=== PATIENT | female | born 1990 | race Caucasian/White ===

== ENCOUNTER → 2017-10-03 09:51 | Outpatient (CLI) | payer BC, SELFPAY ==
--- NOTE | 2017-10-03 09:58 | US_ITS ---
US abdomen limited History:Right upper quadrant pain with nausea and vomiting Ordering Physician:Jennifer Ashraf Patient Age: 27 years Comparison:None Findings: Pancreas:Unremarkable. No obvious mass or abnormal fluid collection. No ductal dilatation Liver:No focal liver lesions demonstrated. Homogeneous echogenicity. No intrahepatic biliary ductal dilatation evident Right Kidney:Unremarkable. Normal size and echogenicity. No hydronephrosis Gallbladder:No gallstones, gallbladder wall thickening, pericholecystic fluid, or biliary dilatation. Impression:Negative gallbladder/right upper quadrant ultrasound
== END ==
PROVIDERS: Family Provider Family Medicine; PCP Nurse Practitioner; Visit Provider Nurse Practitioner
DX: R11.10 Vomiting, unspecified (principal)
CPT/HCPCS: 76705

== ENCOUNTER → 2021-02-09 16:14 | Outpatient (CLI) | payer BC, SELFPAY ==
--- NOTE | 2021-02-09 16:19 | CT_ITS ---
PROCEDURE INFORMATION: Exam: CT Abdomen And Pelvis With Contrast Exam date and time: 02/09/2021 4:19 PM Age: 30 years old Clinical indication: Vomiting; Prior surgery; Surgery type: Tubal ligation; Additional info: Vomiting, other elevated wbc TECHNIQUE: Imaging protocol: Computed tomography of the abdomen and pelvis with contrast. Radiation optimization: All CT scans at this facility use at least one of these dose optimization techniques: automated exposure control; mA and/or kV adjustment per patient size (includes targeted exams where dose is matched to clinical indication); or iterative reconstruction. Contrast material: ISOVUE; Contrast volume: 75 ml; Contrast route: IV; COMPARISON: [facility] US abdomen limited 10/03/2017 9:55 AM FINDINGS: Liver: Normal. No mass. Gallbladder and bile ducts: Normal. No calcified stones. No ductal dilation. Pancreas: Normal. No ductal dilation. Spleen: Normal. No splenomegaly. Adrenal glands: Normal. No mass. Kidneys and ureters: Normal. No hydronephrosis. Stomach and bowel: Unremarkable. No obstruction. No mucosal thickening. Appendix: No evidence of appendicitis. Intraperitoneal space: Unremarkable. No free air. No significant fluid collection. Vasculature: Unremarkable. No abdominal aortic aneurysm. Lymph nodes: Unremarkable. No enlarged lymph nodes. Urinary bladder: Unremarkable as visualized. Reproductive: Unremarkable as visualized. Bones/joints: Unremarkable. No acute fracture. Soft tissues: Unremarkable. IMPRESSION: No acute findings.
== END ==
PROVIDERS: PCP Family Medicine; Visit Provider Family Medicine
DX: R11.10 Vomiting, unspecified (principal); D72.828 Other elevated white blood cell count
CPT/HCPCS: 74177; Q9967

== ENCOUNTER 2021-08-20 17:54 | Emergency (ER) | payer BC, SELFPAY ==
[2021-08-20 18:05] VITALS: BP 133/90; PULSE 83; RESP 20; TEMP 36.8; O2SAT 99; BMI 32.1
--- NOTE | 2021-08-20 18:31 | HMH.EDUTC ---
[facility] – [place] Disposition Clinical Impression: Muscle spasm Disposition: Home, Self-Care Condition on Discharge: Good Instructions: Cyclobenzaprine, DI for Muscle Spasm Additional Instructions: *Etodolac desiree 8 hours with meal as needed for pain/inflammation *Remember you had a Toradol shot in the clinic today, which is similar to Motrin *Not additional anti-inflammatory like Ibuprofen motrin, aleve, advil with the above amount of Etodolac. You can still take Tylenol every 4 hours as needed if you need something else for pain *Ice 20 minutes every 2 hours for the first 48 hours after the initial injury followed by moist heat every 20 minutes 3-4 times a day to affected area *Muscle relaxer every 8 hours as needed for muscle spasms but remember, it WILL cause drowsiness You cannot take it and drive, operate machinery or care for small children. *Keep this area active, no movement leads to more stiffness, However take it easy and avoid heavy lifting pushing or pulling *Follow up with you family doctor if no improvement for further treatment Prescriptions: Etodolac 200 mg PO Q8HP PRN #15 cap PRN Reason: Moderate Pain Transmission Status: Received by [id number] Cyclobenzaprine HCl [Flexeril 10mg tablet] 10 mg PO Q8HP PRN #15 tab PRN Reason: Muscle Spasm Transmission Status: Received by [id number] Referrals: Leonides Bernard MD [Primary Care Provider] - As needed Time of Disposition: 18:56 Medical Decision Making - Bayron Inquiry Pt receiving controlled substance: No Bayron was queried for this patient: No Vital Signs: 08/20/21 18:05 08/20/21 18:49 Temperature 98.3 F 98.3 F Temperature Source Oral Pulse Rate 83 Pulse Rate [Right Brachial] 83 Respiratory Rate 20 20 Blood Pressure 133/90 Blood Pressure [Right Arm] 133/90 Blood Pressure Mean [Right Arm] 104 Blood Pressure Source [Right Arm] Automatic Cuff Blood Pressure Position [Right Arm] Sitting 02 Sat by Pulse Oximetry 99 Oxygen Delivery Method Room Air Orders (Tests/Meds): ED MEDICATIONS Discontinued Medications Generic Name Dose Route Start Last Admin Trade Name Freq PRN Reason Stop Dose Admin Ketorolac Tromethamine 60 mg 08/20/21 18:40 08/20/21 18:45 Ketorolac 60mg/2ml Vial IM 08/20/21 18:41 60 mg ONCE ONE Administration Methylprednisolone Sodium Succinate 125 mg 08/20/21 18:40 08/20/21 18:45 Methylprednisolone Sod Succ 125mg Vial IM 08/20/21 18:41 125 mg ONCE ONE Administration [facility] [place] HPI - General Stated complaint: right shoulder muscle spasms Time Seen by Provider: 08/20/21 18:31 Mode of Arrival: Ambulatory Source of Information: Patient Limitations: No Limitations Description of Symptoms (Recalled from Triage Doc. by RN): PATIENT C/O MUSCLE SPASM TO RIGHT SHOULDER WITH PAIN RADIATING DOWN RIGHT ARM SINCE LAST NIGHT HEENT Symptoms (Recalled from RN notes): No Resp Symptoms (Recalled from RN notes): No Skin Symptoms (Recalled from RN notes): No MS Symptoms (Recalled from RN notes): Yes Functional Status (Recalled from RN notes): WNL - History of Present Illness Provider Complaint: Patient states that earlier in the week she was lifting bird feed to put in the feeder and feels like she may have pulled something in her right shoulder States that now she is having muscle spasms and feels like her muscle is tight in her shoulder into her upper arm Denies known injury - Related Data Previous Rx's Medication Instructions Recorded Cyclobenzaprine HCl [Flexeril 10mg 10 mg PO Q8HP PRN #15 tab 08/20/21 tablet] Etodolac 200 mg PO Q8HP PRN #15 cap 08/20/21 Allergies Allergy/AdvReac Type Severity Reaction Status Date / Time No Known Allergies Allergy Verified 08/20/21 18:17 - Worker's Comp Is this a Worker's Comp case?: No [facility] History - Hepatitis A Screen Attestation statement:: This patient has been screened for Hepatitis A risk factors. I have reviewed the patient's
[2021-08-20 18:49] VITALS: BP 133/90; PULSE 83; RESP 20; TEMP 36.8; O2SAT 99
== END 2021-08-20 19:10 | disposition home or self-care (01) ==
PROVIDERS: Emergency Provider Nurse Practitioner; PCP Family Medicine
DX: M62.838 Other muscle spasm (principal)
CPT/HCPCS: 96372; 99213; G0463

== ENCOUNTER → 2023-03-05 10:13 | Outpatient (CLI) | payer BC, SELFPAY | PROVIDERS: PCP Student in an Organized Health Care Education/Training Program; Visit Provider Student in an Organized Health Care Education/Training Program | DX: J02.9 Acute pharyngitis, unspecified (principal) | CPT/HCPCS: 87070 ==

== ENCOUNTER 2023-10-03 10:45 | Outpatient (CLI) | payer BC, SELFPAY ==
[2023-10-03 18:56] LABS: Adenovirus,PCR Not Detected (NotDetected); Bordetella Pertussis Not Detected (NotDetected); Chlamydophila Pneumoniae, PCR Not Detected (NotDetected); Coronavirus 19, PCR Not Detected (NotDetected); Coronavirus 229E Not Detected (NotDetected); Coronavirus NL63 Not Detected (NotDetected); Coronavirus OC43 Not Detected (NotDetected); Coronovirus HKU1,PCR Not Detected (NotDetected); Human Metapneumovirus Not Detected (NotDetected); Influenza A, PCR Not Detected (NotDetected); Influenza AH1, 2009 Not Detected (NotDetected); Influenza AH1, PCR Not Detected (NotDetected); Influenza AH3,PCR Not Detected (NotDetected); Influenza B, PCR Not Detected (NotDetected); Mycoplasma Pneumoniae, PCR Not Detected (NotDetected); Parainfluenza 1, PCR Not Detected (NotDetected); Parainfluenza 2, PCR Not Detected (NotDetected); Parainfluenza 3, PCR Not Detected (NotDetected); Parainfluenza 4, PCR Not Detected (NotDetected); Respiratory Syncytial Virus Not Detected (NotDetected); Rhinovirus/Enterovirus Not Detected (NotDetected)
== END 2023-10-03 23:59 | disposition home or self-care (01) ==
LOC: LAB.DROPOF 10-04 10:45
PROVIDERS: PCP Nurse Practitioner Family; Visit Provider Nurse Practitioner Family
DX: R05.9 Cough, unspecified (principal); R50.9 Fever, unspecified; R09.81 Nasal congestion; R07.0 Pain in throat; J98.8 Other specified respiratory disorders
CPT/HCPCS: 87581; 87632; 87635; 87798

== ENCOUNTER 2023-10-15 03:58 | Emergency (ER) | payer BC, SELFPAY ==
[2023-10-15 04:00] VITALS: BP 139/96; PULSE 76; RESP 16; TEMP 36.4; O2SAT 96; BMI 32.5
--- NOTE | 2023-10-15 04:09 | XR_ITS ---
PROCEDURE INFORMATION: Exam: XR Chest Exam date and time: 10/15/2023 4:53 AM Age: 33 years old Clinical indication: Cough; Additional info: Cough, rll abnormal breath sounds TECHNIQUE: Imaging protocol: Radiologic exam of the chest. Views: 1 view. COMPARISON: CT ABDOMEN PELVIS W CON 02/09/2021 4:44 PM FINDINGS: Lungs: Unremarkable. No consolidation. Pleural spaces: Unremarkable. No pleural effusion. No pneumothorax. Heart/Mediastinum: Unremarkable. No cardiomegaly. Bones/joints: Unremarkable. IMPRESSION: No acute findings.
--- NOTE | 2023-10-15 04:12 | ED_ITS ---
Discharge Plan Disposition Patient Disposition: Home, Self-Care Prescriptions Prescriptions: New ondansetron HCl 4 mg tablet 4 mg PO Q8H PRN (Reason: nausea and vomiting) 5 Days Qty: 30 0RF promethazine 25 mg tablet 25 mg PO Q6H PRN (Reason: nausea and vomiting) Qty: 20 0RF No Action Wegovy 0.25 mg/0.5 mL pen injector SQ Patient Comments: INJECT 1 AUTO-INJECTOR UNDER THE SKIN INTO THE APPROPRIATE AREA DIRECTED ONCE WEEKLY [id number]-[id number]-CZ [Bromfed DM] 2-30-10 mg/5 mL syrup 5 ml PO Q4-6H PRN (Reason: cough) Qty: 200 0RF lisinopril 10 mg tablet 10 mg PO DAILY Referrals Follow up/Referrals: Lamonte Couch [Primary Care Provider] - See instructions Activity Restrictions/Add. Instructions Additional Instructions/Restrictions: Please follow-up with your primary care provider. Please return to the emergency department if you develop any new or worsening symptoms or become concerned for your health. Please take Zofran and promethazine as needed for nausea and vomiting. Please try to stay hydrated. Clinical Impressions Clinical Impression: Nausea & vomiting Qualifiers: Vomiting type: unspecified Qualified Code(s): R11.2 - Nausea with vomiting, unspecified Instructions Patient Instructions: DI for Diarrhea and Traveler's Diarrhea -- Adult, DI for Diarrhea and Traveler's Diarrhea -- Child, DI for Nausea -- Adult, DI for Nausea -- Child Discharge ED Provider: Azar Nation General Adult HPI General Chief complaint: Nausea/Vomiting/Diarrhea Stated complaint: vomitting, has walking pneumonia, chills Time Seen by Provider: 10/15/23 04:00 History of Present Illness HPI narrative: 33-year-old female presents with multiple complaints. She reports that she was diagnosed with walking pneumonia about 5 or 6 days ago and recently completed a course of azithromycin. Yesterday and today she has had some nausea and vomiting, vomiting has been getting worse. She denies any diarrhea. She reports she has not had a fever for at least for 5 days. She is on Wegovy, has not had any recent increases in dose. Related Data Home Medications Medication Instructions Recorded Confirmed lisinopril 10 mg tablet 10 mg PO DAILY 03/05/23 10/03/23 semaglutide (weight loss) 0.25 mg SQ 10/03/23 10/03/23 mg/0.5 mL subcutaneous pen injector (Alberto) Previous Rx's Medication Instructions Recorded qwpmtrppoplomyo-wgmituklortumzd-FJ 5 ml PO Q4-6H PRN cough #200 mL 10/03/23 2 mg-30 mg-10 mg/5 mL oral syrup (Bromfed DM) ondansetron HCl 4 mg tablet 4 mg PO Q8H PRN nausea and 10/15/23 vomiting 5 days #30 tabs promethazine 25 mg tablet 25 mg PO Q6H PRN nausea and 10/15/23 vomiting #20 tabs Allergies Allergy/AdvReac Type Severity Reaction Status Date / Time No Known Allergies Allergy Verified 10/03/23 11:44 [facility] Disclaimer: The information contained in this section may have been updated after the patient was seen, as this information can be updated by other users. Medical History (Updated 10/15/23 @ 05:18 by Azar Nation MD) Muscle spasm Pharyngitis Hypertension Depression Surgical History History of delivery History of cholecystectomy History of tonsillectomy Family History Family/Other No significant family history Social History Smoking Status: Unknown if ever smoked alcohol intake: never substance use type: denies use current occupational status: employed Travel in the last 8 weeks: None adopted: No caregiver/support person: No household members: family lives independently: Yes marital status: Hx Recent Travel: No ROS Obtained: Yes All systems reviewed & no additional complaints except as documented Physical Exam General General appearance: alert and in no apparent distress Head Head exam: atraumatic and normocephalic Eye Eye exam: Present normal appearance, PERRL and EOMI ENT ENT exam: Present normal oropharynx and normal external ear exam Neck Neck exam: Present normal inspection and full ROM Chest Chest inspection: Present normal inspection and symmetric chest wall rise; Absent tenderness Respiratory Respiratory exam: Present normal lung sounds bilaterally; Absent respiratory distress Cardiovascular Cardiovascular exam: Present regular rate and normal rhythm Abdominal Exam Abdominal exam: Present soft; Absent distention, tenderness or guarding Extremities Exam Extremities exam: Present normal inspection; Absent edema or joint swelling Back Exam Back exam: Present normal inspection; Absent tenderness Neurological Exam Neurological exam: Present alert and oriented X3; Absent motor sensory deficit Psychiatric Psychiatric exam: Present normal affect and normal mood Skin Skin exam: Present warm, dry and normal color Lymphatic Lymphatic Findings: no adenopathy Medical Decision Making Medical Records Medical records reviewed: Yes I reviewed the patient's medical records. Bayron Inquiry Pt receiving controlled substance: No Bayron was queried for this patient: No Vital Signs: 10/15/23 04:00 Temperature 97.5 F L Temperature Source Oral Pulse Rate [Left] 76 Respiratory Rate 16 Blood Pressure [Right Arm] 139/96 H Blood Pressure Mean [Right Arm] 110 02 Sat by Pulse Oximetry 96 Oxygen Delivery Method Room Air Lab Data Lab results reviewed: Yes I reviewed the patient's lab results. Lab Results 10/15/23 04:20: WBC 13.0 H, RBC 4.22, Hgb 13.4, Hct 39.5, MCV 93.8, MCH 31.8 H, MCHC 33.9, RDW 13.7, Plt Count 394, MPV 8.2, Neut % (Auto) 81.9 H, Lymph % (Auto) 13.5, [place] % (Auto) 2.7, Eos % (Auto) 1.4, Baso % (Auto) 0.5, Neut # (Auto) 10.7 H, Lymph # (Auto) 1.8, [place] # (Auto) 0.4, Eos # (Auto) 0.2, Baso # (Auto) 0.1, Sodium 141, Potassium 3.8, Chloride 103, Carbon Dioxide 27, Anion Gap 14.8, BUN 11, Creatinine 0.70, Estimated Creat Clear 148, Estimated GFR 98, Est GFR ( Amer) 118, Glucose 118 H, Calcium 10.2, Magnesium 1.7, Total Bilirubin 1.1, AST 56 H, ALT 52, Alkaline Phosphatase 86, Total Protein 8.3 H, Albumin 4.6, Globulin 3.7 H, Albumin/Globulin Ratio 1.2, Lipase 79, Serum HCG, Qual Negative 10/15/23 04:20 10/15/23 04:20 Orders (Tests/Meds): ED MEDICATIONS Generic Name Dose Route Start Last Admin Trade Name Freq PRN Reason Stop Dose Admin Promethazine HCl 25 mg 10/15/23 05:17 Promethazine Hcl 25mg/Ml 1ml Vial IV 10/15/23 05:18 ONCE ONE Sodium Chloride 10 ml 10/15/23 04:26 Sodium Chloride 0.9% 10ml Flush Syringe IV 11/14/23 04:25 NEEDED PRN Maintain IV Site Sodium Chloride 25 ml 10/15/23 05:17 Sodium Chloride 0.9% 25ml Bag IV 10/15/23 05:18 ONCE ONE Discontinued Medications Generic Name Dose Route Start Last Admin Trade Name Freq PRN Reason Stop Dose Admin Lactated Ringer's 1,000 mls @ 999 mls/hr 10/15/23 04:15 10/15/23 04:22 Lactated Ringer's 1000 Ml Bag IV 10/15/23 05:15 999 mls/hr .Q1H1M CEZAR Administration Ondansetron HCl 4 mg 10/15/23 04:09 10/15/23 04:22 Ondansetron 4mg/2ml Vial IV 10/15/23 04:10 4 mg ONCE ONE Administration ORDERS Category Date Time Status CXR --portable [XR chest portable] Stat Exams 10/15/23 04:09 Taken CBC w/Auto Diff [Complete Blood Count Auto Diff] Stat Lab 10/15/23 04:20 Completed CMP [Comprehensive Metabolic Panel] Stat Lab 10/15/23 04:20 Completed HCG Qualitative, Serum Stat Lab 10/15/23 04:20 Completed Lipase Stat Lab 10/15/23 04:20 Completed Magnesium Stat Lab 10/15/23 04:20 Completed Medical Decision Narrative: 33-year-old female without significant past medical history presents with nausea and vomiting. History was obtained interactive discussion with patient. On arrival, patient is [afebrile, hemodynamically stable, satting appropriately, alert, oriented x4, GCS 15], moving all extremities spontaneously. Full physical exam performed and significant for benign abdominal exam. Differential includes but is not limited to gastroenteritis, pancreatitis, dehydration, electrolyte derangement. Patient was given 1 L IV fluid bolus, Zofran, Phenergan for symptomatic management and correction of underlying abnormalities. Workup initiated including CBC CMP lipase mag test. On re-evaluation, patient [remains afebrile, HD stable.] Reports significant symptomatic improvement. Laboratory workup independently interpreted by me and significant for minimal leukocytosis, normal creatinine, negative lipase, negative test. Imaging independently interpreted by me and significant for no focal opacity concerning for ongoing pneumonia.. See radiology read for full review of final results. Given patient history, exam and workup, patient's presentation most likely represents developing gastroenteritis. No evidence of emergent pathology at this time. Patient discharged in stable condition with prescription for Zofran and Phenergan. Return precautions given.. Procedures Risk/Benefits of Procedure(s) Were Explained: Yes Critical Care Critical Care Time Critical Care Time: No
[2023-10-15] MEDS: ONDANSETRON 4MG/2ML VIAL 4 MG IV (04:22)
[2023-10-15] MEDS: LACTATED RINGERS 1000ML 1,000 ML 999 ML IV (04:22)
[2023-10-15 04:41] LABS: Basophils # 0.1 K/mm3 (0-0.2); Basophils % 0.5 % (0.1-2.0); Eosinophils # 0.2 K/mm3 (0.0-0.4); Eosinophils % 1.4 % (0.1-12.0); Hematocrit 39.5 % (37.0-47.0); Hemoglobin 13.4 g/dL (12.2-16.2); Lymphocytes # 1.8 K/mm3 (0.7-4.5); Lymphocytes % 13.5 % (10-50); Mean Corpuscular HGB Conc 33.9 g/dL (31.8-35.4); Mean Corpuscular Hemoglobin 31.8 pg (27.0-31.2); Mean Corpuscular Volume 93.8 fl (81-99); Mean Platelet Volume 8.2 fl (7.4-10.4); Monocytes # 0.4 K/mm3 (0.1-1.0); Monocytes % 2.7 % (1.7-9.3); Neutrophils # 10.7 K/mm3 (1.8-7.8); Neutrophils % 81.9 % (37.0-80.0); Platelet Count 394 K/mm3 (142-424); Red Blood Count 4.22 M/mm3 (4.20-5.40); Red Cell Distribution Width 13.7 % (11.5-17.5)
[2023-10-15 04:44] LABS: Chloride 103 mmol/L (98-107); Potassium 3.8 mmoL/L (3.5-5.1); Sodium 141 mmol/L (136-145)
[2023-10-15 04:46] LABS: HCG Qualitative, Serum Negative (Negative)
[2023-10-15 04:47] LABS: Alanine Aminotransferase 52 U/L (12-78); Albumin Level 4.6 g/dl (3.5-5.0); Albumin/Globulin Ratio 1.2 (1.1-1.8); Alkaline Phosphatase 86 U/L (38-126); Anion Gap 14.8 mEq/L (5-15); Aspartate Amino Transferase 56 U/L (14-36); Bilirubin,Total 1.1 mg/dl (0.2-1.3); Blood Urea Nitrogen 11 mg/dl (7-17); Carbon Dioxide 27 mmol/L (22.0-30.0); Creatinine Clearance Estimated 148 mL/min (50-200); Estimated Glomerular Filt Rate 98 ml/min (>60); GFR (African American) 118 ML/MIN (>60); Globulin 3.7 g/dL (1.3-3.2); Lipase 79 U/L (23-300); Total Protein,Serum 8.3 g/dl (6.3-8.2)
[2023-10-15 04:48] LABS: Calcium 10.2 mg/dl (8.4-10.2); Glucose 118 mg/dl (74-100); Magnesium 1.7 mg/dl (1.6-2.3)
[2023-10-15] MEDS: PROMETHAZINE HCL 25MG/ML 1ML VIAL 25 MG IV (05:24)
[2023-10-15] MEDS: SODIUM CHLORIDE 0.9% 25ML BAG 25 ML IV (05:25)
[2023-10-15 05:41] VITALS: BP 127/1; PULSE 71; RESP 16; TEMP 36.4; O2SAT 98
== END 2023-10-15 05:42 | disposition home or self-care (01) ==
PROVIDERS: Emergency Provider Emergency Medicine; PCP Family Medicine
DX: R11.2 Nausea with vomiting, unspecified (principal)
CPT/HCPCS: 71045; 80053; 83690; 83735; 84703; 85025; 96361; 96374; 96375; 99284; J2405; J2550; J7120

== ENCOUNTER 2024-01-21 20:21 | Emergency (ER) | payer BC, SELFPAY ==
[2024-01-21 20:21] VITALS: BP 140/96; PULSE 68; RESP 16; TEMP 37.2; O2SAT 97; BMI 30.5
--- NOTE | 2024-01-21 20:24 | ECG_ITS ---
APPROVED REPORT Exam: Resting ECG HR:93 bpm ECG Measurements Heart Rate 93 AXES WY 171 P 58 QRSd 93 QRS 4 QT 343 T 30 QTc 394 Conclusion SINUS RHYTHM NORMAL ECG INTERPRETATION BASED ON A DEFAULT AGE OF 40 YEARS Electronically signed by : GERA GEE, 01/22/2024 07:28:25
[2024-01-21 20:34] VITALS: PULSE 68
--- NOTE | 2024-01-21 20:34 | XR_ITS ---
PROCEDURE INFORMATION: Exam: XR Chest Exam date and time: 01/21/2024 8:57 PM Age: 33 years old Clinical indication: Pain; Chest pressure; Additional info: Cp, TECHNIQUE: Imaging protocol: Radiologic exam of the chest. Views: 1 view. COMPARISON: CR XR CHEST PORTABLE 10/15/2023 4:53 AM FINDINGS: Lungs: Unremarkable. No consolidation. Pleural spaces: Unremarkable. No pleural effusion. No pneumothorax. Heart/Mediastinum: Unremarkable. No cardiomegaly. Bones/joints: Unremarkable. IMPRESSION: No acute findings.
[2024-01-21 20:40] LABS: Basophils # 0.1 K/mm3 (0-0.2); Basophils % 0.7 % (0.1-2.0); Eosinophils # 0.2 K/mm3 (0.0-0.4); Eosinophils % 1.8 % (0.1-12.0); Hemoglobin 14.7 g/dL (12.2-16.2); Mean Corpuscular HGB Conc 33.4 g/dL (31.8-35.4); Mean Platelet Volume 8.7 fl (7.4-10.4); Monocytes # 0.3 K/mm3 (0.1-1.0); Monocytes % 2.8 % (1.7-9.3); Neutrophils # 7.6 K/mm3 (1.8-7.8); Neutrophils % 74.7 % (37.0-80.0); Platelet Count 313 K/mm3 (142-424); Red Blood Count 4.58 M/mm3 (4.20-5.40); Red Cell Distribution Width 13.5 % (11.5-17.5); White Blood Count 10.1 K/mm3 (4.8-10.8)
[2024-01-21 20:50] LABS: Albumin Level 4.9 g/dl (3.5-5.0); Chloride 100 mmol/L (98-107)
[2024-01-21 20:51] LABS: Potassium 3.7 mmoL/L (3.5-5.1); Sodium 138 mmol/L (136-145)
[2024-01-21 20:53] LABS: Alanine Aminotransferase 30 U/L (12-78); Albumin/Globulin Ratio 1.5 (1.1-1.8); Alkaline Phosphatase 88 U/L (38-126); Anion Gap 14.7 mEq/L (5-15); Aspartate Amino Transferase 50 U/L (14-36); Bilirubin,Total 1.3 mg/dl (0.2-1.3); Blood Urea Nitrogen 11 mg/dl (7-17); Carbon Dioxide 27 mmol/L (22.0-30.0); Creatinine Clearance Estimated 139 mL/min (50-200); Estimated Glomerular Filt Rate 98 ml/min (>60); GFR (African American) 118 ML/MIN (>60); Globulin 3.2 g/dL (1.3-3.2); Total Protein,Serum 8.1 g/dl (6.3-8.2)
[2024-01-21 20:54] LABS: Calcium 9.9 mg/dl (8.4-10.2); Glucose 105 mg/dl (74-100); Lipase 71 U/L (23-300)
[2024-01-21] MEDS: METOCLOPRAMIDE HCL 10MG/2ML VIAL 10 MG IVP (21:10)
[2024-01-21] MEDS: LACTATED RINGERS 1000ML 1,000 ML 999 ML IV (21:10)
[2024-01-21 21:27] LABS: HCG,Quantitative < 2 mIU/ml (0-5.42); Troponin I < 0.01 ng/ml (0.00-0.034)
[2024-01-21 21:33] VITALS: BP 126/93; PULSE 93; RESP 16; TEMP 36.7; O2SAT 97
[2024-01-21 21:42] LABS: HIV (1&2) Antibody Rapid NONREACTIVE (NONREACTIVE)
--- NOTE | 2024-01-21 23:21 | HMH.EDGENADL ---
Discharge Plan Disposition Patient Disposition: Left Against Medical Advice Condition: Good Prescriptions Prescriptions: No Action Wegovy 0.25 mg/0.5 mL pen injector SQ Patient Comments: INJECT 1 AUTO-INJECTOR UNDER THE SKIN INTO THE APPROPRIATE AREA DIRECTED ONCE WEEKLY zbhvfebqhkwolvo-yfbmwzgob-MW [Bromfed DM] 2-30-10 mg/5 mL syrup 5 ml PO Q4-6H PRN (Reason: cough) Qty: 200 0RF lisinopril 10 mg tablet 10 mg PO DAILY ondansetron HCl 4 mg tablet 4 mg PO Q8H PRN (Reason: nausea and vomiting) 5 Days Qty: 30 0RF promethazine 25 mg tablet 25 mg PO Q6H PRN (Reason: nausea and vomiting) Qty: 20 0RF Clinical Impressions Clinical Impression: Abdominal pain Print Language Print Language: Iranian Discharge ED Provider: Ranjeet Raymond General Adult HPI General Chief complaint: Chest Pain Stated complaint: chest pain Time Seen by Provider: 01/21/24 20:34 Mode of Arrival: Ambulatory Source of Information: Patient Limitations: No Limitations Description of Symptoms (Recalled from ER Triage Doc. by RN): Pt presents to ED for chesp pressure, N/V, and anxiety. Pt states she doesn't have pain,it just feels weird and she thinks it may be anxiety. Pt took Xantac at home and it didn't help. History of Present Illness HPI narrative: Please note that above description of symptoms, in this electronic medical record under categorization of recalled from ER triage doctor by RN are reflective of an initial nursing assessment, however, is not reflective of my full history and physical exam that was personally taken and clarified. Consequentially, this preceding description of symptoms, which may include the patient's categorized chief complaint in the EMR, do not reflect my personal clinical impression, and the ultimate description of history of present illness and patient stated complaints should be deferred to this section of the note. Unless stated otherwise or congruent with this section of the note, additional signs, symptoms, or incongruence should be interpreted as inaccurate with my clinical impression. Related Data Home Medications ?Medication ?Instructions ?Recorded ?Confirmed lisinopril 10 mg tablet 10 mg PO DAILY 03/05/23 10/03/23 semaglutide (weight loss) 0.25 mg SQ 10/03/23 10/03/23 mg/0.5 mL subcutaneous pen injector (Alberto) Previous Rx's ?Medication ?Instructions ?Recorded gznxwxhommidfjp-otzripyqaawfnfq-AV 5 ml PO Q4-6H PRN cough #200 mL 10/03/23 2 mg-30 mg-10 mg/5 mL oral syrup (Bromfed DM) ondansetron HCl 4 mg tablet 4 mg PO Q8H PRN nausea and 10/15/23 vomiting 5 days #30 tabs promethazine 25 mg tablet 25 mg PO Q6H PRN nausea and 10/15/23 vomiting #20 tabs Allergies Allergy/AdvReac Type Severity Reaction Status Date / Time No Known Allergies Allergy Verified 10/03/23 11:44 ROS Obtained: Yes All systems reviewed & no additional complaints except as documented Physical Exam General General appearance: alert Head Head exam: atraumatic and normocephalic Eye Eye exam: Present normal appearance, PERRL and EOMI Neck Neck exam: Present normal inspection, full ROM and trachea midline Respiratory Respiratory exam: Absent respiratory distress, wheezes, stridor, accessory muscle use or prolonged expiratory phase Cardiovascular Cardiovascular exam: Present other (Pulses equal symmetric in upper and lower extremities) Abdominal Exam Abdominal exam: Present soft; Absent distention, tenderness or pulsatile mass Extremities Exam Extremities exam: Absent edema Neurological Exam Neurological exam: Present alert, oriented X3 and CN II-XII intact; Absent motor sensory deficit Skin Skin exam: Present warm and dry; Absent diaphoresis or erythema Medical Decision Making Medical Records Medical records reviewed: Yes I reviewed the patient's medical records. Screening: Per USPSTF and CDC recommendations, given the prevalence of disease in our region, it is our hospital?s policy to screen for HIV and viral Hepatitis for all patients aged 18 and over and those with ongoing risk factors. Bayron Inquiry Pt receiving controlled substance: No Bayron was queried for this patient: No Vital Signs: 01/21/24 20:21 01/21/24 20:34 01/21/24 21:33 Temperature 98.9 F 98.1 F Temperature Source Oral Oral Pulse Rate 68 93 H Pulse Rate [Left] 68 Respiratory Rate 16 16 Blood Pressure 126/93 H Blood Pressure [Right Arm] 140/96 H Blood Pressure Mean [Right Arm] 110 Blood Pressure Source Automatic Cuff Blood Pressure Position Supine 02 Sat by Pulse Oximetry 97 Oxygen Delivery Method Room Air Room Air Lab Data Lab Results 01/21/24 20:34: WBC 10.1, RBC 4.58, Hgb 14.7, Hct 44.0, MCV 96.0, MCH 32.0 H, MCHC 33.4, RDW 13.5, Plt Count 313, MPV 8.7, Neut % (Auto) 74.7, Lymph % (Auto) 20.0, [place] % (Auto) 2.8, Eos % (Auto) 1.8, Baso % (Auto) 0.7, Neut # (Auto) 7.6, Lymph # (Auto) 2.0, [place] # (Auto) 0.3, Eos # (Auto) 0.2, Baso # (Auto) 0.1, Sodium 138, Potassium 3.7, Chloride 100, Carbon Dioxide 27, Anion Gap 14.7, BUN 11, Creatinine 0.70, Estimated Creat Clear 139, Estimated GFR 98, Est GFR ( Amer) 118, Glucose 105 H, Calcium 9.9, Total Bilirubin 1.3, AST 50 H, ALT 30, Alkaline Phosphatase 88, Troponin I < 0.01, Total Protein 8.1, Albumin 4.9, Globulin 3.2, Albumin/Globulin Ratio 1.5, Lipase 71, HCG, Quant < 2, HIV 1&2 Antibody Rapid Nonreactive 01/21/24 20:34 01/21/24 20:34 Orders (Tests/Meds): ED MEDICATIONS Discontinued Medications Generic Name Dose Route Start Last Admin Trade Name Freq PRN Reason Stop Dose Admin Lactated Ringer's 1,000 mls @ 999 mls/hr 01/21/24 20:45 01/21/24 21:10 Lactated Ringer's 1000 Ml Bag IV 01/21/24 21:45 999 mls/hr .Q1H1M ONE Administration Metoclopramide HCl 10 mg 01/21/24 20:45 01/21/24 21:10 Metoclopramide Hcl 10mg/2ml Vial IVP 01/21/24 20:46 10 mg ONCE ONE Administration ORDERS Category Date Time Status CXR --portable [XR chest portable] Stat Exams 01/21/24 20:34 Completed CBC w/Auto Diff [Complete Blood Count Auto Diff] Stat Lab 01/21/24 20:34 Completed CMP [Comprehensive Metabolic Panel] Stat Lab 01/21/24 20:34 Completed HCG,Quantitative Stat Lab 01/21/24 20:34 Completed HIV (1&2) Antibody Rapid Stat Lab 01/21/24 20:34 Completed Hep C Ab with Reflex to RNA Stat Lab 01/21/24 20:34 Received Lipase Stat Lab 01/21/24 20:34 Completed Trop I [Troponin I] Stat Lab 01/21/24 20:34 Completed Medical Decision Narrative: 33-year-old female history of chronic abdominal and chest pain recently started on semaglutide presenting with epigastric pain. Has been going on since today. Patient has been having retching and vomiting that is nonbloody, nonbilious. States that is yellow in nature. No diarrhea. No fevers or chills, urinary symptoms, etc. Thinks it may be related to her semaglutide injections. No sick contact she knows of. History obtained with patient. On arrival, very well-appearing. She is mildly hypertensive, nontachycardic. 97% on room air. Lungs are clear to auscultation, abdomen is soft, nontender, nondistended. Cardiac exam within normal limits. Differential includes PUD, gastritis, iatrogenisis, gastroparesis, pancreatitis, among others. Patient given fluids and Reglan. Independent rotation of workup with normal CBC and chemistry, negative troponin. Negative . Prior to urine, patient left AMA. Per staff, patient stated that she felt 100% better, no symptoms, signed AMA form and left. This was prior to my evaluation. Calciner Operator Helper disclaimer Much of this encounter note is an electronic pheresis specialist spoken language to printed text. Electronic pheresis specialist of the spoken language may permit errors. Although I have reviewed the note, some errors may still exist. Critical Care Critical Care Time Critical Care Time: No
[2024-01-23 06:28] LABS: HCV Ab Non Reactive (Non Reactive)
== END 2024-01-21 21:34 | disposition left against medical advice (07) ==
PROVIDERS: Emergency Provider Emergency Medicine; PCP Family Medicine
DX: R10.13 Epigastric pain (principal)
CPT/HCPCS: 71045; 80053; 83690; 84484; 84702; 85025; 86803; 87389; 93005; 96361; 96374; 99284; J2765; J7120